=== PATIENT | female | born 1980 | race Caucasian/White ===

== ENCOUNTER 2017-10-01 08:51 | Emergency (ER) | payer BC ==
[~2017-10-01] VITALS: Ht 167.6 cm; Wt 70.2 kg
[~2017-10-01 08:51] MED LIST: ALTACE1.25 MG PO; BACLOFEN10 MG PO; CIPRO500 MG PO; CIPROFLOXACIN H10 ML LEFT EYE; DOCUSATE SODIU100 MG PO; FERROUS SULFAT325 MG PO; FLAGYL500 MG PO; HUMALOG100 UNIT/1 SC; HUMALOG100 UNIT/2 SC; KEFLEX500 MG PO; LANTUS 3 M100 UNITS1 SC; LEVEMIR FL100 UNIT/1 SC; LYRICA25 MG PO; MOTRIN600 MG PO; NORCO 5/3251 TABLET PO; PERCOCET 5/31 TABLET PO; PROZAC10 MG PO; PROZAC40 MG PO; RAMIPRIL1.25 MG PO; ZOFRAN ODT4 MG PO
[2017-10-01 08:55] VITALS: BP 165/105
== END 2017-10-01 10:05 | disposition left against medical advice (07) ==
LOC: EME 08:51
DX: T78.40XA Allergy, unspecified, initial encounter (principal); Z53.21 Procedure and treatment not carried out due to patient leaving prior to being seen by health care provider
CPT/HCPCS: 80048; 85027